=== PATIENT | male | born 1995 | race Caucasian/White ===

== ENCOUNTER 2019-10-11 20:14 | Emergency (ER) | payer BC, SELFPAY ==
--- NOTE | ~2019-10-11 | XR_ITS ---
XR chest 2V DATE: 10/11/2019 20:52 INDICATION: Midsternal chest pain for one week TECHNIQUE: PA and lateral views COMPARISON: 05/16/2014 2 view chest FINDINGS: Normal heart size. No hilar or mediastinal enlargement. The lungs are clear. No pleural eff usion or pulmonary vascular congestion or pneumothorax. IMPRESSION: No active cardiOpulmonary disease Reviewed, dictated and finalized at location A.
[2019-10-11 20:24] VITALS: BP 175/92; PULSE 99; RESP 18; TEMP 36.9; O2SAT 100
[2019-10-11 20:26] VITALS: PULSE 93
--- NOTE | 2019-10-11 20:30 | ECG_ITS ---
Measurements Intervals [place] Rate: 75 P: -7 MS: 120 QRS: 49 QRSD: 110 T: 11 QT: 357 QTc: 401 Interpretive Statements SINUS RHYTHM WITH SINUS ARRHYTHMIA BORDERLINE T WAVE ABNORMALITY- INFERIOR LEADS BORDERLINE ECG Electronically Signed On 10-12-2019 8:07:33 CDT by Emery Duke D.O.
--- NOTE | 2019-10-11 20:32 | ED.CHESTPAIN ---
HPI - Chest Pain General Chief Complaint: Chest Pain Stated Complaint: CP Time Seen by Provider: 10/11/19 20:22 Source: patient Mode of arrival: ambulatory Limitations: no limitations History of Present Illness HPI narrative: This patient is 24 year old male who presents for evaluation of chest pain. Starting 1 week ago he developed sharp pain at bottom of his sternum. Gradually over the past few days he states his pain has gradually moved up his sternum to his sternal notch. He has been taking ibuprofen with some relief. Last night he was able to get pain to go completely away by falling asleep with ice pack on his chest. He has been doing research online and he is wondering if he has costochondritis. He denies cough, fever , nausea and vomiting. He is not sure of sob. He denies history of DVT, PE. Onset (ago): week(s) (1) Timing of current episode: constant Onset: during rest Exacerbating factors: nothing Related Data Allergies Allergy/AdvReac Type Severity Reaction Status Date / Time No Known Allergies Allergy Unverified 10/01/19 13:05 Review of Systems Review of Systems: All systems reviewed & are unremarkable except as noted in HPI and below Constitutional: Constitutional: Denies chills and Denies fever(s) ENT: Denies sore throat Cardiovascular: Cardiovascular: Reports chest pain and Denies rapid heart rate Respiratory: Respiratory: Denies cough, Denies dyspnea and Denies wheezing Gastrointestinal: Gastrointestinal: Denies abdominal pain, Denies diarrhea, Denies nausea and Denies vomiting PMFSH Past Medical History Medical History Fracture collar bone, wrist Healthy adult Surgical History Surgical History Hx of tonsillectomy Social History Social History Smoking status: Never smoker Alcohol intake: current Gender identity (if verbalized by the patient): Male Exam Narrative: Exam Narrative: GENERAL: Well-appearing, well-nourished, and in no acute distress. HEAD: Normocephalic, atraumatic EYES: PERRLA and EOMI, conjunctiva clear without discharge THROAT:Mucous membranes moist, Oropharynx normal without erythema, exudate, peritonsillar swelling or fluctuance NECK: Supple, without lymphadenopathy or mass RESPIRATORY: No respiratory distress, Airway patent, Respirations non-labored, Clear to auscultation without rales, rhonchi or wheeze HEART: Regular rate and rhythm. No murmur heard. Normal peripheral pulses. reproducible costochondral tenderness ABDOMEN: Soft, nontender, nondistended, normal active bowel sounds. No masses. No rebound or guarding, No organomegaly. EXTREMITIES: No edema, normal strength with full range of motion. SKIN: Warm, dry, normal color without rash NEURO: Alert and oriented x3. CN 2-12 grossly intact. No focal deficits. PSYCH: Normal mood and affect. Course Reevaluation(s) Reevaluation #1: I Discussed with patient evaluation is unremarkable. he has negative evaluation . This is unlikely Aortic pathology . He will be treated for costochondritis. Date: 10/11/19 Time: 21:42 Vital Signs Vital signs: Vital Signs Temperature 98.4 F 10/11/19 20:24 Pulse Rate 99 10/11/19 20:24 Respiratory Rate 18 10/11/19 20:24 Blood Pressure 175/92 H 10/11/19 20:24 Pulse Oximetry 100 10/11/19 20:24 Temperature 98.4 F 10/11/19 20:24 Pulse Rate 78 10/11/19 22:19 Respiratory Rate 18 10/11/19 22:19 Blood Pressure 127/80 10/11/19 22:19 Pulse Oximetry 98 10/11/19 22:19 MDM - Chest Pain Lab Data Attestation: I reviewed the patient's lab results. Result diagrams: 10/11/19 20:57 10/11/19 20:57 Labs: Lab Results 10/11/19 10/11/19 10/11/19 Range/Units 20:57 20:57 20:57 WBC 9.7 (4.5-10.0) K/mm3 RBC 5.08 (4.6-6.20) M/mm3 Hgb 16.0
[2019-10-11] MEDS: ASPIRIN 81 MG CHEWABLE TABLET 324 MG PO (20:48)
[2019-10-11 21:05] LABS: Basophils Percent Auto 0.4 % (0.2-1.2); Eosinophils Absolute Auto 0.2 K/mm3 (0-0.3); Eosinophils Percent Auto 1.8 % (0-4.4); Immature Granulocyte Absolute 0.02 K/mm3 (0.00-0.031); Immature Granulocyte Percent A 0.2 % (0-0.5); Lymphocytes Absolute Auto 3.61 K/mm3 (0.9-3.2); Lymphocytes Percent Auto 37.4 % (18.3-44.2); Mean Corpuscular Hemoglobin 31.5 pg (26-34); Mean Corpuscular Volume 92.5 fl (80-100); Monocytes Absolute Auto 0.8 K/mm3 (0.1-0.6); Monocytes Percent Auto 8.2 % (2.6-8.5); Platelet Count Result 293 k/mm3 (150-375); Red Blood Count 5.08 M/mm3 (4.6-6.20); Red Cell Distribution Width 12.4 % (11.5-14.5); White Blood Count 9.7 K/mm3 (4.5-10.0)
[2019-10-11 21:14] LABS: INR 1.1; Partial Thromboplastin Time 26.9 SECONDS (22.3-36.8); Prothrombin Time 13.4 Seconds (11.1-14.7)
[2019-10-11 21:16] LABS: Blood Urea Nitrogen 13 mg/dL (9-20); Calcium 9.6 mg/dL (8.4-10.2); Carbon Dioxide 23 mmol/L (22-30); Chloride 104 mmol/L (98-107); Estimated Glomerular Filt Rate > 60; Glucose 103 mg/dL (75-110); Potassium 3.5 mmol/L (3.4-5.0); Sodium 137 mmol/L (137-145)
[2019-10-11 21:17] LABS: Alanine Aminotransferase 42 U/L (4-50); Alkaline Phosphatase 75 U/L (38-126); Aspartate Amino Transferase 28 U/L (17-59); Bilirubin,Total 0.5 mg/dL (0.2-1.3); Lipase 76 U/L (23-300)
[2019-10-11 21:18] LABS: D Dimer < 0.22 ug/mL (<0.48)
[2019-10-11 21:28] LABS: Troponin I < 0.012 ng/mL (0.000-0.034)
[2019-10-11 22:19] VITALS: BP 127/80; PULSE 78; RESP 18; O2SAT 98
== END 2019-10-11 22:37 | disposition home or self-care (01) ==
PROVIDERS: Emergency Provider General Practice
DX: R07.89 Other chest pain (principal); R94.31 Abnormal electrocardiogram [ECG] [EKG]
CPT/HCPCS: 36415; 71046; 80048; 80076; 83690; 84484; 85025; 85380; 85610; 85730; 93005; 99284; A9270

== ENCOUNTER 2020-09-17 10:44 | Outpatient (CLI) | payer OTHER, SELFPAY ==
--- NOTE | ~2020-09-17 | US_ITS ---
US retroperitoneal comp 09/17/2020 11:06 Procedure: Realtime transabdominal ultrasound of the kidneys and bladder. Indication: Urethritis. Restrictive flow. Comparison: No prior studies for comparison. Findings: Renal echotexture is normal bilaterally without hydronephrosis, contour deforming mass or r enal calculus. The right kidney measures 10.2 cm and left kidney measures 12.2 cm. Bladder within no rmal limits. Impression: 1: Unremarkable renal ultrasound. No stones, masses or hydronephrosis. Reviewed, dictated and finalized at location B. Impression: 1: Unremarkable renal ultrasound. No stones, masses or hydronephrosis.
== END 2020-09-17 10:45 ==
PROVIDERS: Visit Provider Nurse Practitioner Family
DX: N34.2 Other urethritis (principal)
CPT/HCPCS: 76770

== ENCOUNTER 2021-04-12 12:19 | Outpatient (CLI) | payer OTHER, SELFPAY ==
[2021-04-12 12:47] LABS: Hemoglobin 15.2 g/dL (14.0-18.0); Mean Corpuscular HGB Conc 34.5 g/dl (32-36); Mean Corpuscular Volume 92.6 fl (80-100); Mean Platelet Volume 10.4 fl (7.4-10.4); Platelet Count Result 281 k/mm3 (150-375); Red Blood Count 4.75 M/mm3 (4.6-6.20); White Blood Count 6.2 K/mm3 (4.5-10.0)
[2021-04-12 13:50] LABS: Prostate Specific Antigen 1.4 ng/mL (< OR = 4.0)
[2021-04-16 14:07] LABS: Testosterone Free 80.1 pg/mL (35.0-155.0); Testosterone Total 331 ng/dL (250-1100)
== END 2021-04-12 12:20 | disposition home or self-care (01) ==
LOC: ANHLAB 12:22
PROVIDERS: PCP Family Medicine; Visit Provider Nurse Practitioner Family
DX: R10.9 Unspecified abdominal pain (principal); N48.89 Other specified disorders of penis
CPT/HCPCS: 36415; 84153; 84402; 84403; 85027; G0103

== ENCOUNTER 2021-04-17 17:45 | Emergency (ER) | payer OTHER, SELFPAY ==
--- NOTE | ~2021-04-17 | CT_ITS ---
EXAMINATION: CT abdomen pelvis wo con DATE: 04/17/2021 20:50 INDICATION: Left lower quadrant pain, testicular and penis pain TECHNIQUE: Computed tomography (CT) of the abdomen and pelvis was performed without intravenous contr ast. The dose-length product (DLP) was 554.02 mGy-cm. Automated exposure control and iterative recons truction technique were employed. COMPARISON: 07/15/2013 FINDINGS: Minimal dependent atelectasis is present in the lung bases. The heart size is normal. The l iver, spleen, pancreas, gallbladder, and adrenal glands are normal. The kidneys are unremarkable. No pathologically enlarged abdominal or pelvic lymph nodes are identified. There is no free intraperiton eal gas or evidence of bowel obstruction. No obvious abnormality is identified in the testicles or pe nis. IMPRESSION: 1. No CT correlate for the patient's symptoms. Reviewed, dictated and finalized at location F. [employer]
--- NOTE | ~2021-04-17 | US_ITS ---
EXAMINATION: US scrotum doppler DATE: 04/17/2021 21:17 INDICATION: Left testicle pain TECHNIQUE: Testicular sonogram utilizing grayscale and Doppler COMPARISON: None. FINDINGS: The right testis measures 4.6 x 2.3 x 2.9 cm. The left testis measures 4.5 x 2.3 x 3.3 cm. There is normal vascular flow to both testes. The right epididymis contains a 2 mm cyst or spermatoce le. The left epididymis is normal with normal vascular flow. There is no varicocele or hydrocele. IMPRESSION: 1. No sonographic correlate for the patient's symptoms. Reviewed, dictated and finalized at location F. [place]
[2021-04-17 17:54] VITALS: BP 140/83; PULSE 89; RESP 16; O2SAT 100
--- NOTE | 2021-04-17 20:51 | ED.GENADULT ---
HPI - General Adult General Chief complaint: Urogenital-Male Stated complaint: PELVIC PAIN, LEFT TESTICLE PAIN Time Seen by Provider: 04/17/21 20:29 History of Present Illness HPI narrative: Patient is a 25-year-old gentleman who presents the emergency department with chief complaint of left testicle pain. The patient states that he has been having pain in his penis for some time. The patient reports that he seen urology and has had extensive work-up including cystoscopy. Related Data Allergies Allergy/AdvReac Type Severity Reaction Status Date / Time No Known Allergies Allergy Verified 04/17/21 17:46 [facility] Past Medical History Medical History Acne vulgaris Anxiety Dietary counseling and surveillance (05/25/17) Fracture collar bone, wrist Healthy adult Irritable bowel syndrome with diarrhea Irritable bowel syndrome without diarrhea Keloid Multiple sclerosis Scar irritation Surgical History Surgical History Hx of tonsillectomy Family History Family History Father Family history of diabetes mellitus in first degree relative Grandparent Family history of coronary artery disease Social History Social History Smoking status: Never smoker Alcohol intake: current Gender identity (if verbalized by the patient): Male Course Vital Signs Vital signs: Vital Signs Pulse Rate 89 04/17/21 17:54 Respiratory Rate 16 04/17/21 17:54 Blood Pressure 140/83 04/17/21 17:54 Pulse Oximetry 100 04/17/21 17:54 Temperature 36.9 C 04/17/21 21:24 Pulse Rate 78 04/17/21 21:24 Respiratory Rate 17 04/17/21 21:24 Blood Pressure 120/82 04/17/21 21:24 Pulse Oximetry 100 04/17/21 21:24 Medical Decision Making Vital Signs Vital Signs: Vital Signs Pulse Rate 89 04/17/21 17:54 Respiratory Rate 16 04/17/21 17:54 Blood Pressure 140/83 04/17/21 17:54 Pulse Oximetry 100 04/17/21 17:54 Temperature 36.9 C 04/17/21 21:24 Pulse Rate 78 04/17/21 21:24 Respiratory Rate 17 04/17/21 21:24 Blood Pressure 120/82 04/17/21 21:24 Pulse Oximetry 100 04/17/21 21:24 Lab Data Result diagrams: 04/17/21 21:25 04/17/21 21:25 Labs: Lab Results 04/17/21 04/17/21 04/17/21 Range/Units 21:25 21:25 21:25 WBC 9.5 (4.5-10.0) K/mm3 RBC 4.73 (4.6-6.20) M/mm3 Hgb 15.1 (14.0-18.0) g/dL Hct 44.0 (42.0-52.0) % MCV 93.0 (80-100) fl MCH 31.9 (26-34) pg MCHC 34.3 (32-36) g/dl RDW 11.9 (11.5-14.5) % Plt Count 272 (150-375) k/mm3 MPV 10.4 (7.4-10.4) fl Immature Gran % (Auto) 0.3 (0-0.5) % Neut % (Auto) 65.9 (45.5-73.1) % Lymph % (Auto) 26.3 (18.3-44.2) % Dale % (Auto) 5.9 (2.6-8.5) % Eos % (Auto) 1.4 (0-4.4) % Baso % (Auto) 0.2 (0.2-1.2) % Lymph # (Auto) 2.49 (0.9-3.2) K/mm3 Dale # (Auto) 0.6 (0.1-0.6) K/mm3 Eos # (Auto) 0.1 (0-0.3) K/mm3 Baso # (Auto) 0.0 (0.0-0.1) K/mm3 Abs Immat Gran (auto) 0.03 (0.00-0.031) K/mm3 Absolute Neuts (auto) 6.2 (1.3-6.7) K/mm3 Absolute Nucleated RBC 0.0 (0.0-0.012) K/mm3 Nucleated RBC % 0.0 (0.0-0.2) % Sodium (137-145) mmol/L Potassium (3.4-5.0) mmol/L Chloride (98-107) mmol/L Carbon Dioxide (22-30) mmol/L Anion Gap (8-16) mmol/L BUN (9-20) mg/dL Creatinine (0.7-1.3) mg/dL Estim Creat Clear Calc ml/min Estimated GFR (59 - ) Glucose (65-110) mg/dL Calcium (8.4-10.2) mg/dL Total Bilirubin (0.2-1.3) mg/dL AST (17-59) U/L ALT (4-50) U/L Alkaline Phosphatase (38-126) U/L Total Protein (6.3-8.2) g/dL Albumin (3.5-5.1) g/dL Urine Color Yellow (Yellow) Urine Appearance Clear (Clear) Urine pH
--- NOTE | 2021-04-17 21:03 | PC.NURSE ---
Patient taken to US at this time.
[2021-04-17 21:24] VITALS: BP 120/82; PULSE 78; RESP 17; TEMP 36.9; O2SAT 100
[2021-04-17 21:36] LABS: Add Urine Microscopic? NO; Appearance Urine Clear (Clear); Basophils Percent Auto 0.2 % (0.2-1.2); Bilirubin Urine Negative (Negative); Blood Urine Negative (Negative); Color Urine Yellow (Yellow); Eosinophils Absolute Auto 0.1 K/mm3 (0-0.3); Eosinophils Percent Auto 1.4 % (0-4.4); Glucose Urine UA Negative (Negative); Hemoglobin 15.1 g/dL (14.0-18.0); Immature Granulocyte Absolute 0.03 K/mm3 (0.00-0.031); Immature Granulocyte Percent A 0.3 % (0-0.5); Ketones Urine Negative (Negative); Leukocyte Esterase Ur Negative LEU/UL (Negative); Lymphocytes Absolute Auto 2.49 K/mm3 (0.9-3.2); Lymphocytes Percent Auto 26.3 % (18.3-44.2); Mean Corpuscular HGB Conc 34.3 g/dl (32-36); Mean Corpuscular Hemoglobin 31.9 pg (26-34); Mean Platelet Volume 10.4 fl (7.4-10.4); Monocytes Absolute Auto 0.6 K/mm3 (0.1-0.6); Monocytes Percent Auto 5.9 % (2.6-8.5); Neutrophils Absolute Auto 6.2 K/mm3 (1.3-6.7); Neutrophils Percent Auto 65.9 % (45.5-73.1); Nitrate Urine Negative (Negative); Platelet Count Result 272 k/mm3 (150-375); Protein Urine Negative (Negative); Red Blood Count 4.73 M/mm3 (4.6-6.20); Red Cell Distribution Width 11.9 % (11.5-14.5); Urobilinogen Urine Negative mg/dL (<2.0); White Blood Count 9.5 K/mm3 (4.5-10.0)
[2021-04-17 21:45] LABS: Alanine Aminotransferase 62 U/L (4-50); Albumin Level 4.5 g/dL (3.5-5.1); Alkaline Phosphatase 63 U/L (38-126); Anion Gap 11 mmol/L (8-16); Aspartate Amino Transferase 30 U/L (17-59); Bilirubin,Total 0.7 mg/dL (0.2-1.3); Blood Urea Nitrogen 11 mg/dL (9-20); Calcium 9.3 mg/dL (8.4-10.2); Carbon Dioxide 24 mmol/L (22-30); Chloride 103 mmol/L (98-107); Estimated CRCL calculation 106 ml/min; Estimated Glomerular Filt Rate > 60; Glucose 101 mg/dL (65-110); Potassium 3.5 mmol/L (3.4-5.0); Sodium 138 mmol/L (137-145)
[2021-04-17] MEDS: HYDROcodone/acetaminophen (*CRX) 5-325 MG TABLET 1 TAB PO (22:35)
== END 2021-04-17 22:49 | disposition home or self-care (01) ==
PROVIDERS: Emergency Provider Emergency Medicine; PCP Family Medicine
DX: N50.812 Left testicular pain (principal); N48.89 Other specified disorders of penis; K58.0 Irritable bowel syndrome with diarrhea; G35 Multiple sclerosis
CPT/HCPCS: 36415; 74176; 76870; 80053; 81003; 85025; 87491; 87591; 93976; 99284; A9270